=== PATIENT | female | born 1995 | race Asian ===

== ENCOUNTER 2017-10-23 00:09 | Emergency (ER) | payer OTHER ==
[~2017-10-23] VITALS: Ht 157.5 cm; Wt 84.0 kg
[~2017-10-23 00:09] MED LIST: MOTRIN400 MG PO
[2017-10-23] MEDS ORDERED: MEDROL DOSEPAK4 MG PO (01:23)
[2017-10-23 01:47] VITALS: BP 132/83
== END 2017-10-23 01:48 | disposition home or self-care (01) ==
LOC: EME 00:09
DX: R21 Rash and other nonspecific skin eruption (principal); L29.9 Pruritus, unspecified; M79.642 Pain in left hand; M79.641 Pain in right hand; M79.672 Pain in left foot; M79.671 Pain in right foot; T36.0X5A Adverse effect of penicillins, initial encounter; F41.9 Anxiety disorder, unspecified; F32.9 Major depressive disorder, single episode, unspecified; Z88.0 Allergy status to penicillin; Z88.5 Allergy status to narcotic agent
CPT/HCPCS: 99281; 99283; J7512